=== PATIENT | male | born 1940 | race Caucasian/White ===

== ENCOUNTER 2017-05-02 17:32 | Emergency (ER) | payer MEDICARE ==
[~2017-05-02] VITALS: Ht 182.9 cm; Wt 86.0 kg
[2017-05-02 17:38] VITALS: BP 175/93; PULSE 77; RESP 16; TEMP 97.5; O2SAT 99
[2017-05-02] MEDS ORDERED: LIPI20TA PO (17:49)
[2017-05-02] MEDS ORDERED: LISI10TA3 PO (17:49)
[2017-05-02 18:03] VITALS: O2SAT 97
--- NOTE | 2017-05-02 18:04 | PD ---
HPI Chief Complaint: Dizziness Time Seen by Provider: 17:43 Travel History International Travel<30 days: No Contact w/Intl Traveler<30days: No Traveled to known affect area: No History of Present Illness HPI ONSET OF DIZZINESS , ABOUT 3 HRS AGO, WORSE WHEN HE TURNS HIS HEAD, NO N/V/D/JOE/ CP/ABDPAIN. PER PATIENT HE HAS HAD A THOROUGH OUTPATIENT CARDIAC WORKUP IN [facility].. GIVES H/O COPD, AFIB S/P ABLATION, LEAKY VALVES. NO LONGER ON ANY BLOOD THINNERS PER PT. PFSH Social History Tobacco Use: No Allergies-Medications (Allergen,Severity, Reaction): Coded Allergies: No Known Allergies (Unverified , 05/02/17) Reported Meds & Prescriptions Reported Meds & Active Scripts Active Meclizine (Meclizine HCl) 25 Mg Tab 25 Mg PO TID PRN Reported Lisinopril 10 Mg Tab 10 Mg PO DAILY Lipitor (Atorvastatin Calcium) 20 Mg Tab 20 Mg PO HS Review of Systems Except as stated in HPI: all other systems reviewed are Neg General / Constitutional: No: Fever Eyes: No: Visual changes HENT: Positive: Vertigo Cardiovascular: No: Chest Pain or Discomfort Respiratory: No: Shortness of Breath Gastrointestinal: No: Abdominal Pain Genitourinary: No: Dysuria Musculoskeletal: No: Pain Skin: No Rash Neurologic: No: Weakness Psychiatric: No: Depression Endocrine: No: Polydipsia Hematologic/Lymphatic: No: Easy Bruising Physical Exam Narrative GENERAL: SKIN: Warm and dry. HEAD: Atraumatic. Normocephalic. EYES: Pupils equal and round. No scleral icterus. No injection or drainage. LATERAL FATIGUABLE NYSTAGMUS, NO VERTICAL/ROTARY COMPONENT. ENT: No nasal bleeding or discharge. Mucous membranes pink and moist. NECK: Trachea midline. No JVD. CARDIOVASCULAR: Regular rate and rhythm. RESPIRATORY: No accessory muscle use. Clear to auscultation. Breath sounds equal bilaterally. GASTROINTESTINAL: Abdomen soft, non-tender, nondistended. MUSCULOSKELETAL: Extremities without clubbing, cyanosis, or edema. No obvious deformities. NEUROLOGICAL: Awake and alert. No obvious cranial nerve deficits. Motor grossly within normal limits. Five out of 5 muscle strength in the arms and legs. Normal speech. PSYCHIATRIC: Appropriate mood and affect; insight and judgment normal. Data Data Last Documented VS Vital Signs Date Time Temp Pulse Resp B/P (MAP) Pulse Ox O2 Delivery O2 Flow Rate FiO2 05/02/17 19:29 77 18 97 05/02/17 19:28 Room Air 05/02/17 17:38 97.5 Orders Orders Electrocardiogram (05/02/17 17:58) Complete Blood Count With Diff (05/02/17 17:58) Comprehensive Metabolic Panel (05/02/17 17:58) Troponin I (05/02/17 17:58) Chest, Single Ap (05/02/17 17:58) Ct Brain W/O Iv Contrast(Rout) (05/02/17 17:58) Iv Access Insert/Monitor (05/02/17 17:58) Ecg Monitoring (05/02/17 17:58) Oximetry (05/02/17 17:58) Orthostatic Vital Signs (05/02/17 17:58) Meclizine (Antivert) (05/02/17 18:15) Clonidine (Catapres) (05/02/17 18:15) Ed Discharge Order (05/02/17 18:50) Labs Laboratory Tests Test 05/02/17 18:10 White Blood Count 8.2 TH/MM3 Red Blood Count 5.42 MIL/MM3 Hemoglobin 14.7 GM/DL Hematocrit 44.5 % Mean Corpuscular Volume 82.2 FL Mean Corpuscular Hemoglobin 27.0 PG Mean Corpuscular Hemoglobin Concent 32.9 % Red Cell Distribution Width 17.9 % Platelet Count 166 TH/MM3 Mean Platelet Volume 8.5 FL Neutrophils (%) (Auto) 44.1 % Lymphocytes (%) (Auto) 45.7 % Monocytes (%) (Auto) 6.5 % Eosinophils (%) (Auto) 1.8 % Basophils (%) (Auto) 1.9 % Neutrophils # (Auto) 3.6 TH/MM3 Lymphocytes # (Auto) 3.8 TH/MM3 Monocytes # (Auto) 0.5 TH/MM3 Eosinophils # (Auto) 0.1 TH/MM3 Basophils # (Auto) 0.2 TH/MM3 CBC Comment DIFF FINAL Differential Comment Blood Urea Nitrogen 19 MG/DL Creatinine 0.97 MG/DL Random Glucose 113 MG/DL Total Protein 6.6 GM/DL Albumin 3.8 GM/DL Calcium Level 9.0 MG/DL Alkaline Phosphatase 102 U/L Aspartate Amino Transf (AST/SGOT) 25 U/L Alanine Aminotransferase (ALT/SGPT) 33 U/L Total Bilirubin 0.5 MG/DL Sodium Level 143 MEQ/L Potassium Level 4.0 MEQ/L Chloride Level 104 MEQ/L Carbon Dioxide Level 31.2 MEQ/L Anion Gap 8 MEQ/L Estimat Glomerular Filtration Rate 75 ML/MIN Troponin I 0.03 NG/ML MDM Medical Decision Making Medical Screen Exam Complete: Yes Emergency Medical Condition: Yes Medical Record Reviewed: Yes Interpretation(s) NSR, 71, LVH, NL INTERVALS, NO STEMI PATTERN Differential Diagnosis VERTIGO V ANEMIA V DEHYDRATION V ICH Narrative Course NO ANEMIA, DEHYDRATION, CT NEG FOR ICH. PATIENT IS STABLE AMBULATING ON OWN AND WILL D/C HOME ON ANTIVERT Diagnosis Primary Impression: VERTIGO Scripts Meclizine (Meclizine) 25 Mg Tab 25 MG PO TID Y for VERTIGO, #21 TAB 0 Refills Prov: Charlie Simon MD 05/02/17 Disposition: 01 DISCHARGE HOME Condition: Stable Charlie Simon MD May 02, 2017 18:04
[2017-05-02] MEDS ORDERED: MECLIZINE HCL 25 MG TAB PO ONE (18:15)
[2017-05-02] MEDS ORDERED: cloNIDine HCL 0.1 MG TAB PO ONE (18:15)
[2017-05-02 18:19] LABS: AUTOMATED NEUTROPHIL # 3.6 TH/MM3 (1.8-7.7); BASOPHIL # 0.2 TH/MM3 (0-0.2); BASOPHIL % 1.9 % (0.0-2.0); EOSINOPHIL # 0.1 TH/MM3 (0-0.4); EOSINOPHIL % 1.8 % (0.0-4.0); HEMATOCRIT 44.5 % (39.0-51.0); HEMO FLAGS DIFF FINAL; LYMPH % 45.7 % (9.0-44.0); LYMPHOCYTE # 3.8 TH/MM3 (1.0-4.8); MEAN CELL VOLUME 82.2 FL (80.0-100.0); MEAN CORPUSCULAR HGB CONC 32.9 % (32.0-36.0); MONO % 6.5 % (0.0-8.0); NEUT % 44.1 % (16.0-70.0); PLATELET COUNT 166 TH/MM3 (150-450); RED BLOOD COUNT 5.42 MIL/MM3 (4.50-5.90); RED CELL DISTRIBUTION WIDTH 17.9 % (11.6-17.2); WHITE BLOOD COUNT 8.2 TH/MM3 (4.0-11.0)
--- NOTE | 2017-05-02 18:22 | RADRPT ---
EXAM DATE/TIME: 05/02/2017 18:11 [facility] COMPARISON: No previous studies available for comparison. INDICATIONS : Dizziness. RADIATION DOSE: 64.59 CTDIvol (mGy) MEDICAL HISTORY : Cardiovascular disease. Chronic obstructive pulmonary disease. Hypertension. SURGICAL HISTORY : Cardiac ablation. ENCOUNTER: Initial ACUITY: 1 day PAIN SCALE: 0/10 LOCATION: cranial TECHNIQUE: Multiple contiguous axial images were obtained of the head. Using automated exposure control and adj ustment of the mA and/or kV according to patient size, radiation dose was kept as low as reasonably a chievable to obtain optimal diagnostic quality images. DICOM format image data is available electro nically for review and comparison. FINDINGS: CEREBRUM: The ventricles are normal for age. No evidence of midline shift, mass lesion, hemorrhage or acute in farction. No extra-axial fluid collections are seen. POSTERIOR FOSSA: The cerebellum and brainstem are intact. The 4th ventricle is midline. The cerebellopontine angle i s unremarkable. EXTRACRANIAL: The visualized portion of the orbits is intact. SKULL: The calvaria is intact. No evidence of skull fracture. CONCLUSION: Normal examination. Lionel Castro MD on May 02, 2017 at 18:19 Board Certified Radiologist. This report was verified electronically.
[2017-05-02 18:28] VITALS: BP_SYST 159; BP_SYST 164; BP_SYST 178; BP_DIAS 79; BP_DIAS 83; RESP 16
[2017-05-02 18:28] LABS: CHLORIDE 104 MEQ/L (98-107); SODIUM (NA) 143 MEQ/L (136-145)
[2017-05-02 18:32] LABS: ANION GAP 8 MEQ/L (5-15); BICARBONATE 31.2 MEQ/L (21.0-32.0); BLOOD UREA NITROGEN 19 MG/DL (7-18)
--- NOTE | 2017-05-02 18:34 | RADRPT ---
EXAM DATE/TIME: 05/02/2017 18:21 [facility] COMPARISON: No previous studies available for comparison. INDICATIONS : Dizziness starting today MEDICAL HISTORY : Cardiovascular disease. Chronic obstructive pulmonary disease. Hypertension. SURGICAL HISTORY : Cardiac ablation. ENCOUNTER: Initial ACUITY: 1 day PAIN SCORE: 0/10 LOCATION: Bilateral chest FINDINGS: A single view of the chest demonstrates the lungs to be symmetrically aerated without evidence of mas s, infiltrate or effusion. The cardiomediastinal contours are unremarkable. Osseous structures are intact. CONCLUSION: Normal examination. Lionel Castro MD on May 02, 2017 at 18:32 Board Certified Radiologist. This report was verified electronically.
[2017-05-02 18:35] LABS: ALT (GPT) 33 U/L (12-78); AST (GOT) 25 U/L (15-37); GLOMERULAR FILTRATION RATE 75 ML/MIN (>89)
[2017-05-02 18:36] LABS: TOTAL BILIRUBIN ADULT 0.5 MG/DL (0.2-1.0)
[2017-05-02 18:38] LABS: ALKALINE PHOSPHATASE 102 U/L (45-117)
[2017-05-02] MEDS ORDERED: MECL-62 PO (18:49)
[2017-05-02 19:28] VITALS: BP 180/82; PULSE 77; RESP 18; O2SAT 97
--- NOTE | 2017-05-04 08:45 | EKG ---
Date Performed: 05/02/2017 Time Performed: 17:45:24 PTAGE: 76 years EKG: Sinus rhythm WITH FIRST DEGREE AV BLOCK VOLTAGE CRITERIA FOR LVH ABNORMAL ECG NO PREVIOUS TRACING DOCTOR: Karan Arzate Interpretating Date/Time 05/04/2017 08:43:33
== END 2017-05-02 19:31 | disposition home or self-care (01) ==
LOC: PHED 17:32
DX: R42 Dizziness and giddiness (principal); R94.31 Abnormal electrocardiogram [ECG] [EKG]
CPT/HCPCS: 70450; 71010; 80053; 84484; 85025; 93005